=== PATIENT | female | born 1990 | race Caucasian/White ===

== ENCOUNTER 2019-02-14 10:41 | Inpatient (IN) | payer MEDICAID ==
[2019-02-14 12:26] LABS: CHLORIDE,CL 102 mmol/L (98-107); SODIUM,NA 140 mmol/L (136-145)
--- NOTE | 2019-02-14 12:39 | PCM.HP.2 ---
H&P History of Present Illness - General Date of Service: 02/14/19 Admit Problem/Dx: Admission Diagnosis/Problem Admission Diagnosis/Problem Jaundice Source of Information: Patient, Family, Old Records History Limitations: Reports: No Limitations - History of Present Illness Initial Comments - Free Text/Narative: Initially evaluated at [facility] 02-10-19 after her mother saw her for the first time in a few weeks and realized how yellow her eyes and skin had become, the mother convinced patient to come in for evaluation for acute jaundice. Patient was still actively drinking at that time. Workup initiated found acutely elevated liver function tests and mild hypokalemia, and positive urobilinogen. Urine drug of abuse screen was completely negative. BAL was 0.052. Onset of Symptoms: Reports: Unknown/Unsure Duration of Symptoms: Reports: Week(s): Location: Reports: Generalized Severity: Severe Improves with: Reports: None Worsens with: Reports: None Context: Reports: Other (Alcohol abuse, chronic) Associated Symptoms: Reports: Loss of Appetite, Malaise, Weakness, Other ( weight loss, diarrhea) - Related Data Allergies/Adverse Reactions: Allergies Allergy/AdvReac Type Severity Reaction Status Date / Time No Known Allergies Allergy Verified 07/06/13 15:28 Home Medications: Home Meds FLUoxetine HCl [Fluoxetine HCl] 1 tab PO DAILY 07/06/13 [History] Past Medical History - Past Health History Medical/Surgical History: Denies Medical/Surgical History Gastrointestinal History: Reports: Celiac Disease, Chronic Diarrhea, Hepatitis ( recent diagnosis of alcoholic hepatitis, currently hospitalized for), Jaundice ( recent diagnosis, currently being hospitalized for), Other (See Below) (hepatic steatosis) Psychiatric History: Reports: Anxiety Social & Family History - Family History Family Medical History: Unobtainable (Patient is adopted, was born to an alcoholic mother who also used drugs) - Tobacco Use Tobacco Use Within Last Twelve Months: No - Alcohol Use Alcohol Use History: Yes Alcohol Use Frequency: Binges, Daily Alcohol Use Comment: Is interested in long-term residential treatment program. - Recreational Drug Use Recreational Drug Use: No H&P Review of Systems - Review of Systems: Review Of Systems: ROS reveals no pertinent complaints other than HPI. Exam - Exam Exam: See Below - Exam General: Alert, Oriented, 4 HEENT: EOMI, Hearing Intact, Mucosa Moist & Shell, Scleral Icterus Neck: Supple, Trachea Midline Lungs: Clear to Auscultation, Normal Respiratory Effort Cardiovascular: Regular Rate, Regular Rhythm GI/Abdominal Exam: Normal Bowel Sounds, Soft, No Organomegaly, Tender (mild epigastric tenderness to palpation) (Female) Exam: Deferred Rectal (Female) Exam: Deferred Back Exam: Normal Inspection, Full Range of Motion Extremities: No Pedal Edema Skin: Warm, Dry, Intact, Other (skin markedly yellowed secondary to jaundice) Neurological: Cranial Nerves Intact Neuro Extensive - Mental Status: Alert, Oriented x3 Neuro Extensive - Motor, Sensory, Reflexes: CN II-XII Intact, Normal Gait Psychiatric: Alert, Normal Affect, Normal Mood - Patient Data Lab Results Last 24 hrs: Laboratory Results - last 24 hr 02/14/19 Range/Units 11:55 WBC 3.8 L (4.0-10.2) K/uL RBC 3.06 L (3.77-5.09) M/uL Hgb 10.4 L (11.7-15.5) g/dL Hct 30.8 L (34.0-46.0) % MCV 100.7 H (84.0-98.0) fL MCH 34.0 H (28.2-33.3) pg MCHC 33.8 (31.7-36.0) g/dL RDW 18.6 H (11.2-14.1) % Plt Count 241 (150-350) K/uL Neut % (Auto) 59.3 (45.0-80.0) % Lymph % (Auto) 24.4 (10.0-50.0) % [place] % (Auto) 14.2 H (2.0-14.0) % Eos % (Auto) 1.3 (0.0-5.0) % Baso % (Auto) 0.8 (0.0-2.0) % Neut # (Auto) 2.26 (1.40-7.00) K/uL Lymph # (Auto) 0.93 (0.50-3.50) K/uL [place] # (Auto) 0.54 (0.00-1.00) K/uL Eos # (Auto) 0.05 (0.00-0.50) K/uL Baso # (Auto) 0.03 (0.00-0.20) K/uL Result Diagrams: 02/14/19 11:55 02/14/19 11:55 - Problem List (1) Alcohol abuse SNOMED Code(s): 03259217 ICD Code: F10.10 - ALCOHOL ABUSE, UNCOMPLICATED Status: Acute Current Visit: Yes (2) Dehydration SNOMED Code(s): 75921448 ICD Code: E86.0 - DEHYDRATION Status: Acute Priority: Medium Current Visit: Yes (3) Malnutrition SNOMED Code(s): 61878773 ICD Code: E46 - UNSPECIFIED PROTEIN-CALORIE MALNUTRITION Status: Acute Priority: Medium Current Visit: Yes Qualifiers: Malnutrition type: protein-calorie malnutrition Protein-calorie malnutrition severity: mild Problem List Initiated/Reviewed/Updated: Yes Orders Last 24hrs: Active Orders 24 hr Category Date Time Status Patient Status [ADT] Routine ADT 02/14/19 11:40 Ordered Ambulate [RC] PER UNIT ROUTINE Care 02/14/19 11:41 Ordered Cardiac Monitoring [RC] CONTINUOUS Care 02/14/19 11:41 Ordered Height and Weight [RC] DAILY Care 02/14/19 11:39 Ordered Intake and Output [RC] QSHIFT Care 02/14/19 11:41 Ordered May Shower [RC] ASDIRECTED Care 02/14/19 11:39 Ordered Oxygen Therapy [RC] PRN Care 02/14/19 11:40 Ordered Peripheral IV Care [RC] . DIRECTED Care 02/14/19 11:44 Ordered Up ad Darshana [RC] ASDIRECTED Care 02/14/19 11:39 Ordered VTE/DVT Education [RC] PER UNIT ROUTINE Care 02/14/19 11:40 Ordered Vital Signs [RC] Q4H Care 02/14/19 11:40 Ordered Regular Diet [DIET] Diet 02/14/19 Lunch Ordered CBC WITH AUTO DIFF [HEME] AM Lab 02/15/19 05:11 Ordered CBC WITH AUTO DIFF [HEME] AM Lab 02/16/19 05:11 Ordered CBC WITH AUTO DIFF [HEME] AM Lab 02/17/19 05:11 Ordered CBC WITH AUTO DIFF [HEME] AM Lab 02/18/19 05:11 Ordered COMPREHENSIVE METABOLIC PN,CMP [CHEM] AM Lab 02/15/19 05:11 Ordered COMPREHENSIVE METABOLIC PN,CMP [CHEM] AM Lab 02/16/19 05:11 Ordered COMPREHENSIVE METABOLIC PN,CMP [CHEM] AM Lab 02/17/19 05:11 Ordered COMPREHENSIVE METABOLIC PN,CMP [CHEM] AM Lab 02/18/19 05:11 Ordered COMPREHENSIVE METABOLIC PN,CMP [CHEM] Timed Lab 02/14/19 11:39 Ordered DRUG SCREEN, URINE [URCHEM] Stat Lab 02/14/19 11:48 Ordered ETOH [ETHANOL BLOOD MEDICAL] [CHEM] Stat Lab 02/14/19 11:49 Ordered MAGNESIUM [CHEM] Timed Lab 02/14/19 11:39 Ordered URINALYSIS W/MICROSCOPIC [UA W/MICROSCOPIC] [URIN] Lab 02/14/19 11:49 Ordered Routine Sodium Chloride 0.9% [Saline Flush] Med 02/14/19 11:39 Ordered 10 ml FLUSH ASDIRECTED PRN Sodium Chloride 0.9% with KCl 20 mEq @ 150 mL/Hr (1000 Med 02/14/19 11:45 Ordered mL) NS + KCl 20mEq/L [Normal Saline with 20 mEq KCl] 1,000 ml IV ASDIRECTED Peripheral IV Insertion Adult [OM.PC] Routine Oth 02/14/19 11:39 Ordered Resuscitation Status Routine Resus Stat 02/14/19 11:39 Ordered Medication Orders Potassium Chloride/Sodium Chloride (Normal Saline With 20 Meq Kcl) 1,000 mls @ 150 mls/hr IV ASDIRECTED ANGI Sodium Chloride (Saline Flush) 10 ml FLUSH ASDIRECTED PRN PRN Reason: Keep Vein Open Assessment/Plan Comment:: 02-14-19 Remy Burgos PA-C 28 yr-old female with a long history of daily alcohol consumption had presented for evaluation initially at [facility] due to concern for acute jaundice. Her eyes and skin have a significant yellow cast. She was weak and had no appetite, and had lost 26# by our clinic scale unintentionally over the past couple months. She did admit to lack of appetite. She did have some epigastic pain on palpation but no acute generalized tenderness and no organomegaly to palpation. Liver function test were all acutely elevated and she was spilling urobilinogen. K+ mildly elevated. Ultrasound found no cirrhosis but steatosis. She was dehydrated and considered to have at least mild malnutrition status. An IV of NS with KCl is started and telemetry placed. Regular diet ordered, and I will order a dietary consult. Labs sent over from initial visit at [facility] and will be repeated today. Long discussion was held in the clinic of the very acute nature of her liver disease and the extreme risk she is placing herself at if she continues drinking alcohol. I have been in contact with Alta Lee of [facility], and she is hoping she will be able to confirm a bed availability for residential treatment for alcohol abuse. Her 16 month-old daughter has been living with her parents and will continue to do so. Dr. Cedeno was consulted at the time the decision was made to admit.
[2019-02-14 13:13] LABS: BARBITURATE SCREEN,URINE NEGATIVE (NEGATIVE); BENZODIAZEPINES SCREEN,URINE NEGATIVE (NEGATIVE)
[2019-02-14 13:14] LABS: TCA SCREEN,URINE NEGATIVE (NEGATIVE); THC SCREEN,URINE 50 NG/ML NEGATIVE (NEGATIVE)
[2019-02-14] MEDS: LORazepam 1 MG Tab PO PRN ×2 (14:42→20:02)
[2019-02-14] MEDS: NS + KCl 20mEq/L 1,000 ML IV SCH ×2 (14:52→21:32)
--- NOTE | 2019-02-14 15:56 | PCM.SN ---
- Free Text/Narrative Note: 02-14-19 Remy Burgos PA-C This patient was seen in [facility] and admitted to IP status by this provider as her prior primary care provider QASIM Pena is no longer practicing at [facility] and is not currently seeing patients in her new place of employment.
[2019-02-14] MEDS: Potassium Chloride 20 MEQ Tab.ER PO SCH (18:36)
[2019-02-14] MEDS: Nicotine 21 MG/24 Hr Patch TRDERM SCH (19:23)
[2019-02-15] MEDS ORDERED: Acetaminophen 325 MG Tab PO PRN (00:19)
[2019-02-15] MEDS: LORazepam 1 MG Tab PO PRN ×4 (00:37→19:22)
[2019-02-15] MEDS ORDERED: Mineral Oil/Petrolatum/Phenylephrine/Shark Liver Oil Oint 57 GM Tube RECTAL PRN (00:46)
[2019-02-15] MEDS: NS + KCl 20mEq/L 1,000 ML IV SCH ×3 (04:21→19:30)
[2019-02-15] MEDS: Sodium Chloride 0.9% 10 ML Syringe FLUSH PRN ×3 (07:20→17:17)
[2019-02-15] MEDS: LORazepam 2 MG/ML SDV IVPUSH PRN ×2 (07:20→11:03)
[2019-02-15] MEDS: Potassium Chloride 20 MEQ Tab.ER PO SCH ×2 (07:20→17:17)
[2019-02-15] MEDS: Nicotine 21 MG/24 Hr Patch TRDERM SCH (07:20)
[2019-02-15 07:51] LABS: CHLORIDE,CL 104 mmol/L (98-107); SODIUM,NA 139 mmol/L (136-145)
--- NOTE | 2019-02-15 12:37 | PCM.PN ---
- General Info Date of Service: 02/15/19 Admission Dx/Problem (Free Text): Admission Diagnosis/Problem Admission Diagnosis/Problem Jaundice Functional Status: Reports: Tolerating Diet (says trying to eat more), Ambulating, Urinating - Review of Systems General: Reports: Fatigue HEENT: Reports: No Symptoms Pulmonary: Reports: No Symptoms Cardiovascular: Reports: No Symptoms Gastrointestinal: Reports: Other (some bloating, better now) Genitourinary: Reports: No Symptoms Musculoskeletal: Reports: No Symptoms Skin: Reports: Jaundice Neurological: Reports: No Symptoms Psychiatric: Reports: No Symptoms - Patient Data Vitals - Most Recent: Last Vital Signs Temp 98.1 F 02/15/19 12:00 Pulse 100 02/15/19 12:00 Resp 17 02/15/19 12:00 BP 132/80 02/15/19 12:00 Pulse Ox 98 02/15/19 12:00 Weight - Most Recent: 140 lb 6.4 oz I&O - Last 24 Hours: Intake & Output 02/14/19 02/15/19 02/15/19 22:59 06:59 14:59 Intake Total 1618 3254 Output Total 1900 950 Balance 1618 1354 -950 Lab Results Last 24 Hours: Laboratory Results - last 24 hr 02/14/19 02/14/19 02/14/19 Range/Units 11:48 11:48 11:55 WBC (4.0-10.2) K/uL RBC (3.77-5.09) M/uL Hgb (11.7-15.5) g/dL Hct (34.0-46.0) % MCV (84.0-98.0) fL MCH (28.2-33.3) pg MCHC (31.7-36.0) g/dL RDW (11.2-14.1) % Plt Count (150-350) K/uL Neut % (Auto) (45.0-80.0) % Lymph % (Auto) (10.0-50.0) % [place] % (Auto) (2.0-14.0) % Eos % (Auto) (0.0-5.0) % Baso % (Auto) (0.0-2.0) % Neut # (Auto) (1.40-7.00) K/uL Lymph # (Auto) (0.50-3.50) K/uL [place] # (Auto) (0.00-1.00) K/uL Eos # (Auto) (0.00-0.50) K/uL Baso # (Auto) (0.00-0.20) K/uL Sodium 140 (136-145) mmol/L Potassium 3.0 L (3.5-5.1) mmol/L Chloride 102 (98-107) mmol/L Carbon Dioxide 27.9 (21.0-32.0) mmol/L BUN 7 (7-18) mg/dL Creatinine 0.52 (0.51-1.17) mg/dL Est Cr Clr Drug Dosing TNP Estimated GFR (MDRD) > 60 mL/min Glucose 123 H (74-106) mg/dL Calcium 7.7 L (8.5-10.1) mg/dL Magnesium 1.7 L (1.8-2.4) mg/dL Total Bilirubin 5.0 H (0.2-1.0) mg/dL AST 573 H (15-37) U/L ALT 205 H (12-78) U/L Alkaline Phosphatase 673 H (46-116) IU/L Total Protein 5.7 L (6.4-8.2) g/dL Albumin 2.3 L (3.4-5.0) g/dL Specimen Type Urincc Urine Color Yellow Urine Appearance Clear Urine pH 6.5 (5.0-9.0) Ur Specific [place] 1.010 (1.005-1.030) Urine Protein Negative (NEGATIVE) mg/dL Urine Glucose (UA) Negative (NEGATIVE) mg/dL Urine Ketones Negative (NEGATIVE) mg/dL Urine Occult Blood Negative (NEGATIVE) Urine Nitrite Negative (NEGATIVE) Urine Bilirubin Moderate H (NEGATIVE) Urine Urobilinogen 0.2 (0.2-1.0) E.U./dL Ur Leukocyte Esterase Negative (NEGATIVE) Urine RBC Not seen /HPF Urine WBC Not seen /HPF Ur Epithelial Cells Moderate H /LPF Urine Bacteria Rare (NONE TO FEW) /HPF Urine Opiates Screen Negative (NEGATIVE) Urine Methadone Screen Negative (NEGATIVE) U Acetaminophen Screen Negative (NEGATIVE) Ur Barbiturates Screen Negative (NEGATIVE) Ur Tricyclics Screen Negative (NEGATIVE) Ur Phencyclidine Scrn Negative (NEGATIVE) Ur Amphetamine Screen Negative (NEGATIVE) U Methamphetamines Scrn Negative (NEGATIVE) U Benzodiazepines Scrn Negative (NEGATIVE) U Cocaine Metab Screen Negative (NEGATIVE) U Marijuana (THC) Screen Negative (NEGATIVE) Ethyl Alcohol (0.000-0.080) g/dL 02/14/19 02/15/19 02/15/19 Range/Units 11:55 07:20 07:20 WBC 3.7 L (4.0-10.2) K/uL RBC 3.03 L (3.77-5.09) M/uL Hgb 10.3 L (11.7-15.5) g/dL Hct 30.8 L (34.0-46.0) % MCV 101.7 H (84.0-98.0) fL MCH 34.0 H (28.2-33.3) pg MCHC 33.4 (31.7-36.0) g/dL RDW 18.6 H (11.2-14.1) % Plt Count 259 (150-350) K/uL Neut % (Auto) 63.3 (45.0-80.0) % Lymph % (Auto) 25.3 (10.0-50.0) % [place] % (Auto) 10.1 (2.0-14.0) % Eos % (Auto) 0.8 (0.0-5.0) % Baso % (Auto) 0.5 (0.0-2.0) % Neut # (Auto) 2.33 (1.40-7.00) K/uL Lymph # (Auto) 0.93 (0.50-3.50) K/uL [place] # (Auto) 0.37 (0.00-1.00) K/uL Eos # (Auto) 0.03 (0.00-0.50) K/uL Baso # (Auto) 0.02 (0.00-0.20) K/uL Sodium 139 (136-145) mmol/L Potassium 3.6 (3.5-5.1) mmol/L Chloride 104 (98-107) mmol/L Carbon Dioxide 24.4 (21.0-32.0) mmol/L BUN 3 L (7-18) mg/dL Creatinine 0.50 L (0.51-1.17) mg/dL Est Cr Clr Drug Dosing 164.35 Estimated GFR (MDRD) > 60 mL/min Glucose 104 (74-106) mg/dL Calcium 8.1 L (8.5-10.1) mg/dL Magnesium (1.8-2.4) mg/dL Total Bilirubin 5.8 H (0.2-1.0) mg/dL AST 711 H (15-37) U/L ALT 210 H (12-78) U/L Alkaline Phosphatase 663 H (46-116) IU/L Total Protein 5.4 L (6.4-8.2) g/dL Albumin 2.1 L (3.4-5.0) g/dL Specimen Type Urine Color Urine Appearance Urine pH (5.0-9.0) Ur Specific [place] (1.005-1.030) Urine Protein (NEGATIVE) mg/dL Urine Glucose (UA) (NEGATIVE) mg/dL Urine Ketones (NEGATIVE) mg/dL Urine Occult Blood (NEGATIVE) Urine Nitrite (NEGATIVE) Urine Bilirubin (NEGATIVE) Urine Urobilinogen (0.2-1.0) E.U./dL Ur Leukocyte Esterase (NEGATIVE) Urine RBC /HPF Urine WBC /HPF Ur Epithelial Cells /LPF Urine Bacteria (NONE TO FEW) /HPF Urine Opiates Screen (NEGATIVE) Urine Methadone Screen (NEGATIVE) U Acetaminophen Screen (NEGATIVE) Ur Barbiturates Screen (NEGATIVE) Ur Tricyclics Screen (NEGATIVE) Ur Phencyclidine Scrn (NEGATIVE) Ur Amphetamine Screen (NEGATIVE) U Methamphetamines Scrn (NEGATIVE) U Benzodiazepines Scrn (NEGATIVE) U Cocaine Metab Screen (NEGATIVE) U Marijuana (THC) Screen (NEGATIVE) Ethyl Alcohol 0.166 H (0.000-0.080) g/dL 02/15/19 Range/Units 07:20 WBC (4.0-10.2) K/uL RBC (3.77-5.09) M/uL Hgb (11.7-15.5) g/dL Hct (34.0-46.0) % MCV (84.0-98.0) fL MCH (28.2-33.3) pg MCHC (31.7-36.0) g/dL RDW (11.2-14.1) % Plt Count (150-350) K/uL Neut % (Auto) (45.0-80.0) % Lymph % (Auto) (10.0-50.0) % [place] % (Auto) (2.0-14.0) % Eos % (Auto) (0.0-5.0) % Baso % (Auto) (0.0-2.0) % Neut # (Auto) (1.40-7.00) K/uL Lymph # (Auto) (0.50-3.50) K/uL [place] # (Auto) (0.00-1.00) K/uL Eos # (Auto) (0.00-0.50) K/uL Baso # (Auto) (0.00-0.20) K/uL Sodium (136-145) mmol/L Potassium (3.5-5.1) mmol/L Chloride (98-107) mmol/L Carbon Dioxide (21.0-32.0) mmol/L BUN (7-18) mg/dL Creatinine (0.51-1.17) mg/dL Est Cr Clr Drug Dosing Estimated GFR (MDRD) mL/min Glucose (74-106) mg/dL Calcium (8.5-10.1) mg/dL Magnesium (1.8-2.4) mg/dL Total Bilirubin (0.2-1.0) mg/dL AST (15-37) U/L ALT (12-78) U/L Alkaline Phosphatase (46-116) IU/L Total Protein (6.4-8.2) g/dL Albumin (3.4-5.0) g/dL Specimen Type Urine Color Urine Appearance Urine pH (5.0-9.0) Ur Specific [place] (1.005-1.030) Urine Protein (NEGATIVE) mg/dL Urine Glucose (UA) (NEGATIVE) mg/dL Urine Ketones (NEGATIVE) mg/dL Urine Occult Blood (NEGATIVE) Urine Nitrite (NEGATIVE) Urine Bilirubin (NEGATIVE) Urine Urobilinogen (0.2-1.0) E.U./dL Ur Leukocyte Esterase (NEGATIVE) Urine RBC /HPF Urine WBC /HPF Ur Epithelial Cells /LPF Urine Bacteria (NONE TO FEW) /HPF Urine Opiates Screen (NEGATIVE) Urine Methadone Screen (NEGATIVE) U Acetaminophen Screen (NEGATIVE) Ur Barbiturates Screen (NEGATIVE) Ur Tricyclics Screen (NEGATIVE) Ur Phencyclidine Scrn (NEGATIVE) Ur Amphetamine Screen (NEGATIVE) U Methamphetamines Scrn (NEGATIVE) U Benzodiazepines Scrn (NEGATIVE) U Cocaine Metab Screen (NEGATIVE) U Marijuana (THC) Screen (NEGATIVE) Ethyl Alcohol 0.001 (0.000-0.080) g/dL Med Orders - Current: Current Medications Acetaminophen (Tylenol) 650 mg PO Q3H PRN PRN Reason: Pain Last Admin: 02/15/19 00:38 Dose: 650 mg Potassium Chloride/Sodium Chloride (Normal Saline With 20 Meq Kcl) 1,000 mls @ 150 mls/hr IV ASDIRECTED ANGI Last Admin: 02/15/19 11:03 Dose: 150 mls/hr Lorazepam (Ativan) 1 mg PO Q4H PRN PRN Reason: Withdrawal Symptoms Last Admin: 02/15/19 04:26 Dose: 1 mg Lorazepam (Ativan) 2 mg IVPUSH Q1H PRN PRN Reason: Withdrawal Symptoms Last Admin: 02/15/19 11:03 Dose: 2 mg Miscellaneous Information (Remove Patch) 1 ea TRDERM DAILY [facility] Nicotine (Habitrol) 21 mg TRDERM DAILY [facility] Last Admin: 02/15/19 07:20 Dose: 21 mg Phenyleph/Shark Oil/Min Oil/Petrol (Preparation H Oint) 1 gm RECTAL ASDIRECTED PRN PRN Reason: Hemorrhoids Last Admin: 02/15/19 01:03 Dose: 1 gm Potassium Chloride (Klor-Con M20) 20 meq PO BID ANGI Last Admin: 02/15/19 07:20 Dose: 20 meq Sodium Chloride (Saline Flush) 10 ml FLUSH ASDIRECTED PRN PRN Reason: Keep Vein Open Last Admin: 02/15/19 11:03 Dose: 10 ml - Exam General: Alert, Oriented HEENT: Pupils Equal, Pupils Reactive, EOMI, Mucous Membr. Moist/[place], Scleral Icterus Neck: Supple, Trachea Midline, No JVD Lungs: Clear to Auscultation, Normal Respiratory Effort Cardiovascular: Regular Rate, Regular Rhythm GI/Abdominal Exam: Normal Bowel Sounds, Soft, Non-Tender, No Organomegaly, Distended (softly) (Female) Exam: Deferred Back Exam: Normal Inspection Extremities: Normal Inspection, No Pedal Edema Skin: Warm, Dry, Intact Neurological: No New Focal Deficit Psy/Mental Status: Alert, Normal Affect, Normal Mood - Problem List & Annotations (1) Alcohol abuse SNOMED Code(s): 34671864 Code(s): F10.10 - ALCOHOL ABUSE, UNCOMPLICATED Status: Acute Current Visit: Yes (2) Dehydration SNOMED Code(s): 22318627 Code(s): E86.0 - DEHYDRATION Status: Acute Priority: Medium Current Visit: Yes (3) Malnutrition SNOMED Code(s): 62345784 Code(s): E46 - UNSPECIFIED PROTEIN-CALORIE MALNUTRITION Status: Acute Priority: Medium Current Visit: Yes Qualifiers: Malnutrition type: protein-calorie malnutrition Protein-calorie malnutrition severity: mild Qualified Code(s): E44.1 - Mild protein-calorie malnutrition - Problem List Review Problem List Initiated/Reviewed/Updated: Yes - My Orders Last 24 Hours: My Active Orders 02/14/19 11:39 Height and Weight [RC] 16 September Shower [RC] ASDIRECTED Up ad Darshana [RC] ASDIRECTED Sodium Chloride 0.9% [Saline Flush] 10 ml FLUSH ASDIRECTED PRN Peripheral IV Insertion Adult [OM.PC] Routine Resuscitation Status Routine 02/14/19 11:40 Patient Status [ADT] Routine Oxygen Therapy [RC] .PRN VTE/DVT Education [RC] .PRN Vital Signs [RC] Q4HR 02/14/19 11:41 Ambulate [RC] PER UNIT ROUTINE Cardiac Monitoring [RC] Q2HR Intake and Output [RC] ,18 02/14/19 11:44 Peripheral IV Care [RC] . DIRECTED 02/14/19 11:45 NS + KCl 20mEq/L [Normal Saline with 20 mEq KCl] 1,000 ml IV ASDIRECTED 02/14/19 13:23 Consult to Dietary [Consult to Rn Lab] [CONS] Routine 02/14/19 13:45 medroxyPROGESTERone Acetate [Depo-Subq Provera 104] DOSE UNIT RTE FREQ 02/14/19 14:00 LORazepam [Ativan] 1 mg PO Q4H PRN LORazepam [Ativan] 2 mg IVPUSH Q1H PRN 02/14/19 18:00 Potassium Chloride [Klor-Con M20] 20 meq PO BID 02/16/19 05:11 CBC WITH AUTO DIFF [HEME] AM COMPREHENSIVE METABOLIC PN,CMP [CHEM] AM 02/17/19 05:11 CBC WITH AUTO DIFF [HEME] AM COMPREHENSIVE METABOLIC PN,CMP [CHEM] AM 02/18/19 05:11 CBC WITH AUTO DIFF [HEME] AM COMPREHENSIVE METABOLIC PN,CMP [CHEM] AM - Plan Plan:: 02-14-19 Remy Burgos PA-C 28 yr-old female with a long history of daily alcohol consumption had presented for evaluation initially at [facility] due to concern for acute jaundice. Her eyes and skin have a significant yellow cast. She was weak and had no appetite, and had lost 26# by our clinic scale unintentionally over the past couple months. She did admit to lack of appetite. She did have some epigastic pain on palpation but no acute generalized tenderness and no organomegaly to palpation. Liver function test were all acutely elevated and she was spilling urobilinogen. K+ mildly elevated. Ultrasound found no cirrhosis but steatosis. She was dehydrated and considered to have at least mild malnutrition status. An IV of NS with KCl is started and telemetry placed. Regular diet ordered, and I will order a dietary consult. Labs sent over from initial visit at [facility] and will be repeated today. Long discussion was held in the clinic of the very acute nature of her liver disease and the extreme risk she is placing herself at if she continues drinking alcohol. I have been in contact with Alta Lee of [facility] [place], and she is hoping she will be able to confirm a bed availability for residential treatment for alcohol abuse. Her 16 month-old daughter has been living with her parents and will continue to do so. Dr. Cedeno was consulted at the time the decision was made to admit. 02-15-19 Remy Burgos PA-C Patient is sitting up in the bed today, she has not eaten any of her lunch but says she will. Says she is trying to increase fluid and nutritional intake. Denies chest or abdominal pain. Denies SOB. Is using the prn Lorazepam. Tells me today that she has now chosen [facility] in [place], [place] as the facility she wants to be admitted to for alcohol treatment. She has made contact herself with this facility per telephone and does have a fax number that we can use to send information to. I reviewed today's labs with patient, and told her I believe that I do not feel she will be discharged to home tomorrow but probably Sunday.
[2019-02-15] MEDS: Thiamine 200 MG/2 ML MDV IV SCH (17:17)
[2019-02-15] MEDS ORDERED: Temazepam 15 MG Cap PO PRN (21:16)
[2019-02-16] MEDS ORDERED: diphenhydrAMINE 25 MG Cap PO ONE (02:17)
[2019-02-16] MEDS: LORazepam 1 MG Tab PO PRN ×3 (02:32→22:49)
[2019-02-16] MEDS: Sodium Chloride 0.9% 10 ML Syringe FLUSH PRN ×2 (04:09→08:11)
[2019-02-16] MEDS: LORazepam 2 MG/ML SDV IVPUSH PRN (04:09)
[2019-02-16] MEDS: Nicotine 21 MG/24 Hr Patch TRDERM SCH (08:04)
[2019-02-16] MEDS: Potassium Chloride 20 MEQ Tab.ER PO SCH (08:08)
[2019-02-16] MEDS: Thiamine 200 MG/2 ML MDV IV SCH (08:09)
[2019-02-16 08:11] LABS: CHLORIDE,CL 106 mmol/L (98-107); SODIUM,NA 140 mmol/L (136-145)
[2019-02-16] MEDS: NS + KCl 20mEq/L 1,000 ML IV SCH (09:06)
[2019-02-16] MEDS: Sodium Chloride 0.9% 1,000 ML IV SCH ×2 (14:52→22:55)
--- NOTE | 2019-02-16 15:04 | PCM.PN ---
- General Info Date of Service: 02/16/19 Admission Dx/Problem (Free Text): Admission Diagnosis/Problem Admission Diagnosis/Problem Jaundice Functional Status: Reports: Tolerating Diet, Ambulating, Urinating - Review of Systems General: Reports: Fatigue HEENT: Reports: No Symptoms Pulmonary: Reports: No Symptoms Cardiovascular: Reports: No Symptoms Gastrointestinal: Reports: Decreased Appetite Genitourinary: Reports: No Symptoms Musculoskeletal: Reports: No Symptoms Skin: Reports: Other (says skin and eyes less yellow) Neurological: Reports: No Symptoms Psychiatric: Reports: No Symptoms - Patient Data Vitals - Most Recent: Last Vital Signs Temp 99.2 F 02/16/19 12:00 Pulse 89 02/16/19 12:00 Resp 20 02/16/19 12:00 BP 132/90 02/16/19 12:00 Pulse Ox 98 02/16/19 12:00 Weight - Most Recent: 138 lb 4.8 oz I&O - Last 24 Hours: Intake & Output 02/15/19 02/16/19 02/16/19 22:59 06:59 14:59 Intake Total 3272 1238 1050 Output Total 1600 600 Balance 6447 206 0076 Lab Results Last 24 Hours: Laboratory Results - last 24 hr 02/15/19 02/16/19 02/16/19 Range/Units 17:09 07:11 07:11 WBC 4.0 (4.0-10.2) K/uL RBC 3.25 L (3.77-5.09) M/uL Hgb 11.0 L (11.7-15.5) g/dL Hct 34.0 (34.0-46.0) % MCV 104.6 H (84.0-98.0) fL MCH 33.8 H (28.2-33.3) pg MCHC 32.4 (31.7-36.0) g/dL RDW 18.7 H (11.2-14.1) % Plt Count 294 (150-350) K/uL Neut % (Auto) 57.1 (45.0-80.0) % Lymph % (Auto) 31.3 (10.0-50.0) % [place] % (Auto) 8.6 (2.0-14.0) % Eos % (Auto) 2.5 (0.0-5.0) % Baso % (Auto) 0.5 (0.0-2.0) % Neut # (Auto) 2.26 (1.40-7.00) K/uL Lymph # (Auto) 1.24 (0.50-3.50) K/uL [place] # (Auto) 0.34 (0.00-1.00) K/uL Eos # (Auto) 0.10 (0.00-0.50) K/uL Baso # (Auto) 0.02 (0.00-0.20) K/uL PT 11.5 (9.5-12.0) SEC INR 1.1 APTT 28.2 (21.0-31.3) SEC Sodium (136-145) mmol/L Potassium (3.5-5.1) mmol/L Chloride (98-107) mmol/L Carbon Dioxide (21.0-32.0) mmol/L BUN (7-18) mg/dL Creatinine (0.51-1.17) mg/dL Est Cr Clr Drug Dosing mL/min Estimated GFR (MDRD) mL/min Glucose (74-106) mg/dL Calcium (8.5-10.1) mg/dL Magnesium (1.8-2.4) mg/dL Iron (50-175) ug/dL TIBC (250-450) ug/dL % Saturation Ferritin (8-388) ng/mL Total Bilirubin (0.2-1.0) mg/dL AST (15-37) U/L ALT (12-78) U/L Alkaline Phosphatase (46-116) IU/L Total Protein (6.4-8.2) g/dL Albumin (3.4-5.0) g/dL Vitamin B12 (193-986) pg/mL Folate (8.6-58.9) ng/mL Specimen Type Urincc Urine Color [place] Urine Appearance Clear Urine pH 7.5 (5.0-9.0) Ur Specific [place] 1.015 (1.005-1.030) Urine Protein Negative (NEGATIVE) mg/dL Urine Glucose (UA) Negative (NEGATIVE) mg/dL Urine Ketones Negative (NEGATIVE) mg/dL Urine Occult Blood Negative (NEGATIVE) Urine Nitrite Negative (NEGATIVE) Urine Bilirubin Small H (NEGATIVE) Urine Urobilinogen 0.2 (0.2-1.0) E.U./dL Ur Leukocyte Esterase Negative (NEGATIVE) Urine RBC 0-5 /HPF Urine WBC 0-5 /HPF Ur Epithelial Cells Occasional /LPF Urine Bacteria Occasional (NONE TO FEW) /HPF 02/16/19 02/16/19 02/16/19 Range/Units 07:22 07:22 07:22 WBC (4.0-10.2) K/uL RBC (3.77-5.09) M/uL Hgb (11.7-15.5) g/dL Hct (34.0-46.0) % MCV (84.0-98.0) fL MCH (28.2-33.3) pg MCHC (31.7-36.0) g/dL RDW (11.2-14.1) % Plt Count (150-350) K/uL Neut % (Auto) (45.0-80.0) % Lymph % (Auto) (10.0-50.0) % [place] % (Auto) (2.0-14.0) % Eos % (Auto) (0.0-5.0) % Baso % (Auto) (0.0-2.0) % Neut # (Auto) (1.40-7.00) K/uL Lymph # (Auto) (0.50-3.50) K/uL [place] # (Auto) (0.00-1.00) K/uL Eos # (Auto) (0.00-0.50) K/uL Baso # (Auto) (0.00-0.20) K/uL PT (9.5-12.0) SEC INR APTT (21.0-31.3) SEC Sodium 140 (136-145) mmol/L Potassium 4.6 (3.5-5.1) mmol/L Chloride 106 (98-107) mmol/L Carbon Dioxide 24.6 (21.0-32.0) mmol/L BUN 3 L (7-18) mg/dL Creatinine 0.51 (0.51-1.17) mg/dL Est Cr Clr Drug Dosing 161.13 mL/min Estimated GFR (MDRD) > 60 mL/min Glucose 88 (74-106) mg/dL Calcium 8.9 (8.5-10.1) mg/dL Magnesium 1.8 (1.8-2.4) mg/dL Iron 137 (50-175) ug/dL TIBC 121 L (250-450) ug/dL % Saturation 113.30443 Ferritin 2489 H (8-388) ng/mL Total Bilirubin 8.9 H (0.2-1.0) mg/dL AST 566 H (15-37) U/L ALT 206 H (12-78) U/L Alkaline Phosphatase 693 H (46-116) IU/L Total Protein 6.0 L (6.4-8.2) g/dL Albumin 2.3 L (3.4-5.0) g/dL Vitamin B12 1550 H (193-986) pg/mL Folate 10.1 (8.6-58.9) ng/mL Specimen Type Urine Color Urine Appearance Urine pH (5.0-9.0) Ur Specific [place] (1.005-1.030) Urine Protein (NEGATIVE) mg/dL Urine Glucose (UA) (NEGATIVE) mg/dL Urine Ketones (NEGATIVE) mg/dL Urine Occult Blood (NEGATIVE) Urine Nitrite (NEGATIVE) Urine Bilirubin (NEGATIVE) Urine Urobilinogen (0.2-1.0) E.U./dL Ur Leukocyte Esterase (NEGATIVE) Urine RBC /HPF Urine WBC /HPF Ur Epithelial Cells /LPF Urine Bacteria (NONE TO FEW) /HPF Med Orders - Current: Current Medications Acetaminophen (Tylenol) 650 mg PO Q3H PRN PRN Reason: Pain Last Admin: 02/15/19 00:38 Dose: 650 mg Sodium Chloride (Normal Saline) 1,000 mls @ 125 mls/hr IV ASDIRECTED [facility] Last Admin: 02/16/19 14:52 Dose: 125 mls/hr Lorazepam (Ativan) 1 mg PO Q4H PRN PRN Reason: Withdrawal Symptoms Last Admin: 02/16/19 02:32 Dose: 1 mg Lorazepam (Ativan) 2 mg IVPUSH Q1H PRN PRN Reason: Withdrawal Symptoms Last Admin: 02/16/19 04:09 Dose: 2 mg Miscellaneous Information (Remove Patch) 1 ea TRDERM DAILY [facility] Last Admin: 02/16/19 08:08 Dose: 1 ea Nicotine (Habitrol) 21 mg TRDERM DAILY [facility] Last Admin: 02/16/19 08:04 Dose: 21 mg Phenyleph/Shark Oil/Min Oil/Petrol (Preparation H Oint) 1 gm RECTAL ASDIRECTED PRN PRN Reason: Hemorrhoids Last Admin: 02/15/19 01:03 Dose: 1 gm Potassium Chloride (Klor-Con M20) 20 meq PO DAILY [facility] Sodium Chloride (Saline Flush) 10 ml FLUSH ASDIRECTED PRN PRN Reason: Keep Vein Open Last Admin: 02/16/19 08:11 Dose: 10 ml Temazepam (Restoril) 15 mg PO BEDTIME PRN PRN Reason: Insomnia Thiamine HCl (Vitamin B-1) 100 mg IV DAILY [facility] Last Admin: 02/16/19 08:09 Dose: 100 mg Discontinued Medications Diphenhydramine HCl (Benadryl) 50 mg PO ONETIME ONE Stop: 02/16/19 02:18 Last Admin: 02/16/19 02:32 Dose: 50 mg Potassium Chloride/Sodium Chloride (Normal Saline With 20 Meq Kcl) 1,000 mls @ 75 mls/hr IV ASDIRECTED [facility] Last Admin: 02/16/19 09:06 Dose: 150 mls/hr Potassium Chloride (Klor-Con M20) 20 meq PO BID [facility] Last Admin: 02/16/19 08:08 Dose: 20 meq - Exam General: Alert, Oriented, Cooperative, No Acute Distress HEENT: Pupils Equal, Pupils Reactive, EOMI, Mucous Membr. Moist/[place], Scleral Icterus (improved from initial exam) Neck: Supple, Trachea Midline Lungs: Clear to Auscultation, Normal Respiratory Effort Cardiovascular: Tachycardia (mildly) GI/Abdominal Exam: Normal Bowel Sounds, Soft, No Organomegaly, Tender (mild RUQ and epigastric tenderness to palpation) (Female) Exam: Deferred Back Exam: Normal Inspection Extremities: Normal Inspection, No Pedal Edema Skin: Warm, Dry, Intact Neurological: No New Focal Deficit Psy/Mental Status: Alert, Normal Affect, Normal Mood - Problem List & Annotations (1) Alcohol abuse SNOMED Code(s): 75249108 Code(s): F10.10 - ALCOHOL ABUSE, UNCOMPLICATED Status: Acute Current Visit: Yes (2) Dehydration SNOMED Code(s): 39073431 Code(s): E86.0 - DEHYDRATION Status: Acute Priority: Medium Current Visit: Yes (3) Malnutrition SNOMED Code(s): 36511813 Code(s): E46 - UNSPECIFIED PROTEIN-CALORIE MALNUTRITION Status: Acute Priority: Medium Current Visit: Yes Qualifiers: Malnutrition type: protein-calorie malnutrition Protein-calorie malnutrition severity: mild Qualified Code(s): E44.1 - Mild protein-calorie malnutrition - Problem List Review Problem List Initiated/Reviewed/Updated: Yes - My Orders Last 24 Hours: My Active Orders 02/15/19 20:00 Vital Signs [RC] QID 02/16/19 14:30 Sodium Chloride 0.9% @ 125 MLS/HR (1000ml) Sodium Chloride 0.9% [Normal Saline] 1,000 ml IV ASDIRECTED 02/16/19 14:58 Cardiac Monitoring [RC] Q4HR 02/17/19 05:11 CBC WITH AUTO DIFF [HEME] AM COMPREHENSIVE METABOLIC PN,CMP [CHEM] AM 02/17/19 08:00 Potassium Chloride [Klor-Con M20] 20 meq PO DAILY 02/18/19 05:11 CBC WITH AUTO DIFF [HEME] AM COMPREHENSIVE METABOLIC PN,CMP [CHEM] AM - Plan Plan:: 02-14-19 Remy Burgos PA-C 28 yr-old female with a long history of daily alcohol consumption had presented for evaluation [place] [facility] [place] to concern for acute jaundice. Her eyes and skin have a significant yellow cast. She was weak and had no appetite, and had lost 26# by our clinic scale unintentionally over the past couple months. She did admit to lack of appetite. She did have some epigastic pain on palpation but no acute generalized tenderness and no organomegaly to palpation. Liver function test were all acutely elevated and she was spilling urobilinogen. K+ mildly elevated. Ultrasound found no cirrhosis but steatosis. She was dehydrated and considered to have at least mild malnutrition status. An IV of NS with KCl is started and telemetry placed. Regular diet ordered, and I will order a dietary consult. Labs sent over from initial visit at [facility] and will be repeated today. Long discussion was held in the clinic of the very acute nature of her liver disease and the extreme risk she is placing herself at if she continues drinking alcohol. I have been in contact with Alta Lee of [facility] [place], and she is hoping she will be able to confirm a bed availability for residential treatment for alcohol abuse. Her 16 month-old daughter has been living with her parents and will continue to do so. Dr. Cedeno was consulted at the time the decision was made to admit. 02-15-19 Remy Burgos PA-C Patient is sitting up in the bed today, she has not eaten any of her lunch but says she will. Says she is trying to increase fluid and nutritional intake. Denies chest or abdominal pain. Denies SOB. Is using the prn Lorazepam. Tells me today that she has now chosen [facility] in [place], [place] as the facility she wants to be admitted to for alcohol treatment. She has made contact herself with this facility per telephone and does have a fax number that we can use to send information to. I reviewed today's labs with patient, and told her I believe that I do not feel she will be discharged to home tomorrow but probably Sunday. 02-16-19 Remy Burgos PA-C Patient's affect is a little brighter today. Less scleral icterus. I am concerned for the increased T. Bill. and elevated Ferritin level. AST has trended back down somewhat, but ALT and Alk. Phos. essentially unchanged. K+ now well WNL so the IV fluid is changed to NS without the KCl and the po KCl is changed to only daily. Pt. tells me she drinks because of her anxiety and asks about an anti-anxiety pill. Says she was previously be on Wellbutrin, however I explained to her to risk for seizures if she should relapse and drink again as the Wellbutrin would lower the seizure threshold so this would not be a good choice for her, and she says it did not help anyway. I explained that any of the medicines that act on the central nervous system can dramatically exacerbate the effect of alcohol and would carry risk. She has used less of the prn Lorazepam today. We discussed the two AA meeting places here in [place] and says she has been to the one at the [facility] and felt that she was gossiped about after attending and wouldn't feel comfortable going again. I did strongly recommend she attend at least one meet at the [facility], the meetings are on Sunday nights at I believe 7pm but I did give her the phone number of the [facility] so she can call and verify that time. She tells me again she wants to go the [facility] in [place], [place] and is working on transferring her Medicaid over to [place]. She will be going home with friends when she is discharged, and reassures me that these friends will help keep her sober. I did let her know that Dr. Cedeno will be seeing her here in the hospital tomorrow. I also wished her success in her sobriety.
[2019-02-17] MEDS: LORazepam 1 MG Tab PO PRN ×2 (04:40→08:14)
[2019-02-17] MEDS: Sodium Chloride 0.9% 1,000 ML IV SCH (07:15)
[2019-02-17 07:39] LABS: CHLORIDE,CL 106 mmol/L (98-107); SODIUM,NA 139 mmol/L (136-145)
[2019-02-17] MEDS ORDERED: Potassium Chloride 20 MEQ Tab.ER PO SCH (08:00)
[2019-02-17] MEDS: Nicotine 21 MG/24 Hr Patch TRDERM SCH (08:13)
[2019-02-17] MEDS: Thiamine 200 MG/2 ML MDV IV SCH (08:13)
[2019-02-17] MEDS: Sodium Chloride 0.9% 10 ML Syringe FLUSH PRN (08:14)
[2019-02-17 14:10] VITALS: BP 118/76; PULSE 85
--- NOTE | 2019-02-18 | PCM.PN ---
- General Info Date of Service: 02/17/19 Admission Dx/Problem (Free Text): Admission Diagnosis/Problem Admission Diagnosis/Problem Jaundice Functional Status: Reports: Pain Controlled, Tolerating Diet, Ambulating, Urinating - Review of Systems General: Reports: No Symptoms HEENT: Reports: No Symptoms Pulmonary: Reports: No Symptoms Cardiovascular: Reports: No Symptoms Gastrointestinal: Reports: No Symptoms Genitourinary: Reports: No Symptoms Musculoskeletal: Reports: No Symptoms Skin: Reports: Jaundice Neurological: Reports: No Symptoms Psychiatric: Reports: Anxiety - Patient Data Vitals - Most Recent: Last Vital Signs Temp 99 F 02/17/19 11:05 Pulse 85 02/17/19 11:05 Resp 20 02/17/19 11:05 BP 118/76 02/17/19 11:05 Pulse Ox 96 02/17/19 11:05 Weight - Most Recent: 135 lb 3.2 oz I&O - Last 24 Hours: Intake & Output 02/17/19 02/17/19 02/18/19 14:59 22:59 06:59 Intake Total 500 Output Total 1200 Balance -700 Lab Results Last 24 Hours: Laboratory Results - last 24 hr 02/17/19 02/17/19 Range/Units 07:05 07:05 WBC 5.2 (4.0-10.2) K/uL RBC 2.93 L (3.77-5.09) M/uL Hgb 9.9 L (11.7-15.5) g/dL Hct 30.8 L (34.0-46.0) % MCV 105.1 H (84.0-98.0) fL MCH 33.8 H (28.2-33.3) pg MCHC 32.1 (31.7-36.0) g/dL RDW 18.7 H (11.2-14.1) % Plt Count 285 (150-350) K/uL Neut % (Auto) 63.2 (45.0-80.0) % Lymph % (Auto) 24.9 (10.0-50.0) % [place] % (Auto) 8.2 (2.0-14.0) % Eos % (Auto) 2.7 (0.0-5.0) % Baso % (Auto) 1.0 (0.0-2.0) % Neut # (Auto) 3.30 (1.40-7.00) K/uL Lymph # (Auto) 1.30 (0.50-3.50) K/uL [place] # (Auto) 0.43 (0.00-1.00) K/uL Eos # (Auto) 0.14 (0.00-0.50) K/uL Baso # (Auto) 0.05 (0.00-0.20) K/uL Sodium 139 (136-145) mmol/L Potassium 3.9 (3.5-5.1) mmol/L Chloride 106 (98-107) mmol/L Carbon Dioxide 23.0 (21.0-32.0) mmol/L BUN 6 L (7-18) mg/dL Creatinine 0.61 (0.51-1.17) mg/dL Est Cr Clr Drug Dosing 134.71 mL/min Estimated GFR (MDRD) > 60 mL/min Glucose 96 (74-106) mg/dL Calcium 8.6 (8.5-10.1) mg/dL Total Bilirubin 8.3 H (0.2-1.0) mg/dL AST 305 H (15-37) U/L ALT 143 H (12-78) U/L Alkaline Phosphatase 544 H (46-116) IU/L Total Protein 5.4 L (6.4-8.2) g/dL Albumin 2.0 L (3.4-5.0) g/dL Med Orders - Current: Current Medications Discontinued Medications Acetaminophen (Tylenol) 650 mg PO Q3H PRN PRN Reason: Pain Last Admin: 02/15/19 00:38 Dose: 650 mg Diphenhydramine HCl (Benadryl) 50 mg PO ONETIME ONE Stop: 02/16/19 02:18 Last Admin: 02/16/19 02:32 Dose: 50 mg Potassium Chloride/Sodium Chloride (Normal Saline With 20 Meq Kcl) 1,000 mls @ 75 mls/hr IV ASDIRECTED [facility] Last Admin: 02/16/19 09:06 Dose: 150 mls/hr Sodium Chloride (Normal Saline) 1,000 mls @ 125 mls/hr IV ASDIRECTED [facility] Last Admin: 02/17/19 07:15 Dose: 125 mls/hr Lorazepam (Ativan) 1 mg PO Q4H PRN PRN Reason: Withdrawal Symptoms Last Admin: 02/17/19 08:14 Dose: 1 mg Lorazepam (Ativan) 2 mg IVPUSH Q1H PRN PRN Reason: Withdrawal Symptoms Last Admin: 02/16/19 04:09 Dose: 2 mg Miscellaneous Information (Remove Patch) 1 ea TRDERM DAILY [facility] Last Admin: 02/17/19 08:13 Dose: 1 ea Nicotine (Habitrol) 21 mg TRDERM DAILY [facility] Last Admin: 02/17/19 08:13 Dose: 21 mg Phenyleph/Shark Oil/Min Oil/Petrol (Preparation H Oint) 1 gm RECTAL ASDIRECTED PRN PRN Reason: Hemorrhoids Last Admin: 02/15/19 01:03 Dose: 1 gm Potassium Chloride (Klor-Con M20) 20 meq PO BID [facility] Last Admin: 02/16/19 08:08 Dose: 20 meq Potassium Chloride (Klor-Con M20) 20 meq PO DAILY [facility] Last Admin: 02/17/19 08:13 Dose: 20 meq Sodium Chloride (Saline Flush) 10 ml FLUSH ASDIRECTED PRN PRN Reason: Keep Vein Open Last Admin: 02/17/19 08:14 Dose: 10 ml Temazepam (Restoril) 15 mg PO BEDTIME PRN PRN Reason: Insomnia Last Admin: 02/16/19 22:54 Dose: 15 mg Thiamine HCl (Vitamin B-1) 100 mg IV DAILY [facility] Last Admin: 02/17/19 08:13 Dose: 100 mg - Exam General: Alert, Cooperative, No Acute Distress HEENT: Pupils Equal, Pupils Reactive, EOMI, Mucous Membr. Moist/[place], Scleral Icterus Neck: Trachea Midline, No JVD Lungs: Clear to Auscultation, Normal Respiratory Effort Cardiovascular: Regular Rate, Regular Rhythm GI/Abdominal Exam: Normal Bowel Sounds, Soft, No Distention (Female) Exam: Deferred Back Exam: Normal Inspection Extremities: Normal Inspection, Non-Tender, No Pedal Edema Skin: Warm, Dry, Intact Neurological: No New Focal Deficit Psy/Mental Status: Alert, Normal Affect, Normal Mood - Problem List & Annotations (1) Hepatitis, alcoholic, acute SNOMED Code(s): 4255673 Code(s): K70.10 - ALCOHOLIC HEPATITIS WITHOUT ASCITES Status: Acute Priority: High (2) Hypokalemia SNOMED Code(s): 42186902 Code(s): E87.6 - HYPOKALEMIA Status: Acute Priority: High (3) Alcohol abuse SNOMED Code(s): 62808874 Code(s): F10.10 - ALCOHOL ABUSE, UNCOMPLICATED Status: Acute (4) Dehydration SNOMED Code(s): 63145762 Code(s): E86.0 - DEHYDRATION Status: Acute Priority: Medium (5) Malnutrition SNOMED Code(s): 24621445 Code(s): E46 - UNSPECIFIED PROTEIN-CALORIE MALNUTRITION Status: Acute Priority: Medium Qualifiers: Malnutrition type: protein-calorie malnutrition Protein-calorie malnutrition severity: mild Qualified Code(s): E44.1 - Mild protein-calorie malnutrition (6) Anxiety SNOMED Code(s): 22662902 Code(s): F41.9 - ANXIETY DISORDER, UNSPECIFIED Status: Acute Priority: High (7) Tobacco dependency SNOMED Code(s): 10877326 Code(s): F17.200 - NICOTINE DEPENDENCE, UNSPECIFIED, UNCOMPLICATED Status: Acute Priority: Medium - Problem List Review Problem List Initiated/Reviewed/Updated: Yes - My Orders Last 24 Hours: My Active Orders 02/17/19 12:11 Discontinue Saline Lock [Peripheral IV Discontinue] [OM.PC] Routine 02/17/19 12:20 Discontinue Telemetry Monitoring [Cardiac Monitoring Discontinue] [RC] Click to Edit 02/17/19 12:21 Ready for Discharge [RC] PER UNIT ROUTINE - Plan Plan:: 02-14-19 Remy Burgos PA-C 28 yr-old female with a long history of daily alcohol consumption had presented for evaluation initially at [facility] due to concern for acute jaundice. Her eyes and skin have a significant yellow cast. She was weak and had no appetite, and had lost 26# by our clinic scale unintentionally over the past couple months. She did admit to lack of appetite. She did have some epigastic pain on palpation but no acute generalized tenderness and no organomegaly to palpation. Liver function test were all acutely elevated and she was spilling urobilinogen. K+ mildly elevated. Ultrasound found no cirrhosis but steatosis. She was dehydrated and considered to have at least mild malnutrition status. An IV of NS with KCl is started and telemetry placed. Regular diet ordered, and I will order a dietary consult. Labs sent over from initial visit at [facility] and will be repeated today. Long discussion was held in the clinic of the very acute nature of her liver disease and the extreme risk she is placing herself at if she continues drinking alcohol. I have been in contact with Alta Lee of [facility] [place], and she is hoping she will be able to confirm a bed availability for residential treatment for alcohol abuse. Her 16 month-old daughter has been living with her parents and will continue to do so. Dr. Cedeno was consulted at the time the decision was made to admit. 02-15-19 Remy Burgos PA-C Patient is sitting up in the bed today, she has not eaten any of her lunch but says she will. Says she is trying to increase fluid and nutritional intake. Denies chest or abdominal pain. Denies SOB. Is using the prn Lorazepam. Tells me today that she has now chosen [facility] in [place], [place] as the facility she wants to be admitted to for alcohol treatment. She has made contact herself with this facility per telephone and does have a fax number that we can use to send information to. I reviewed today's labs with patient, and told her I believe that I do not feel she will be discharged to home tomorrow but probably Sunday. 02-16-19 Remy Burgos PA-C Patient's affect is a little brighter today. Less scleral icterus. I am concerned for the increased T. Bill. and elevated Ferritin level. AST has trended back down somewhat, but ALT and Alk. Phos. essentially unchanged. K+ now well WNL so the IV fluid is changed to NS without the KCl and the po KCl is changed to only daily. Pt. tells me she drinks because of her anxiety and asks about an anti-anxiety pill. Says she was previously be on Wellbutrin, however I explained to her to risk for seizures if she should relapse and drink again as the Wellbutrin would lower the seizure threshold so this would not be a good choice for her, and she says it did not help anyway. I explained that any of the medicines that act on the central nervous system can dramatically exacerbate the effect of alcohol and would carry risk. She has used less of the prn Lorazepam today. We discussed the two AA meeting places here in [place] and says she has been to the one at the [facility] and felt that she was gossiped about after attending and wouldn't feel comfortable going again. I did strongly recommend she attend at least one meet at the [facility], the meetings are on Sunday nights at I believe 7pm but I did give her the phone number of the [facility] so she can call and verify that time. She tells me again she wants to go the [facility] in [place], [place] and is working on transferring her Medicaid over to [place]. She will be going home with friends when she is discharged, and reassures me that these friends will help keep her sober. I did let her know that Dr. Cedeno will be seeing her here in the hospital tomorrow. I also wished her success in her sobriety. 02/17/19 Pao Paul MD She feels better. We discussed frankly the damage to her liver, blood cells from alcohol and she must NOT take even one more sip of alcohol in her life. She states she understands and she does feel ready to abstain completely. We did discuss referral to gastroenterology which she agrees. Discussed her anxiety and treatments. Discussed smoking cessation. Discussed options for alcohol treatment. Also did discuss medications to help deter her craving of alcohol. Spent approximately 45 minutes. Also discussed her low protein and hypokalemia.
--- NOTE | 2019-02-18 00:13 | PCM.DCSUM1 ---
Discharge Summary - Hospital Course Diagnosis: Stroke: No - Discharge Data Discharge Date: 02/17/19 Discharge Disposition: Home, Self-Care 01 Condition: Fair - Referral to Home Health Primary Care Physician: CHRISTOPHE Alford - Discharge Diagnosis/Problem(s) (1) Hepatitis, alcoholic, acute SNOMED Code(s): 1577700 ICD Code: K70.10 - ALCOHOLIC HEPATITIS WITHOUT ASCITES Status: Acute Priority: High (2) Hypokalemia SNOMED Code(s): 65038818 ICD Code: E87.6 - HYPOKALEMIA Status: Acute Priority: High (3) Alcohol abuse SNOMED Code(s): 97776989 ICD Code: F10.10 - ALCOHOL ABUSE, UNCOMPLICATED Status: Acute (4) Dehydration SNOMED Code(s): 35475493 ICD Code: E86.0 - DEHYDRATION Status: Acute Priority: Medium (5) Malnutrition SNOMED Code(s): 91718604 ICD Code: E46 - UNSPECIFIED PROTEIN-CALORIE MALNUTRITION Status: Acute Priority: Medium Qualifiers: Malnutrition type: protein-calorie malnutrition Protein-calorie malnutrition severity: mild Qualified Code(s): E44.1 - Mild protein-calorie malnutrition (6) Anxiety SNOMED Code(s): 30083339 ICD Code: F41.9 - ANXIETY DISORDER, UNSPECIFIED Status: Acute Priority: High (7) Tobacco dependency SNOMED Code(s): 20777221 ICD Code: F17.200 - NICOTINE DEPENDENCE, UNSPECIFIED, UNCOMPLICATED Status : Acute Priority: Medium (8) Acute hemorrhoid SNOMED Code(s): 83781720, 93255475 ICD Code: K64.9 - UNSPECIFIED HEMORRHOIDS Status: Acute Priority: Medium (9) Uses control SNOMED Code(s): 043993981, 837681724 ICD Code: Z78.9 - OTHER SPECIFIED HEALTH STATUS Status: Acute Priority: Medium - Patient Summary/Data Consults: Consultations 02/14/19 13:23 Consult to Dietary [Consult to Enamel Sprayer] [CONS] Routine - Patient Instructions Diet: Regular Diet as Tolerated Activity: As Tolerated Driving: May Drive Today Showering/Bathing: May Shower Other/Special Instructions: We will check on your PCP. We will schedule you an appointment with a specialist (freight service inspector) in [place]. We will call you with the information. Continue making the arrangements for follow up with [facility]. Call [facility] and ask for Mami with any questions. - Discharge Plan *PRESCRIPTION DRUG MONITORING PROGRAM REVIEWED*: Not Applicable *COPY OF PRESCRIPTION DRUG MONITORING REPORT IN PATIENT SHELBY: Not Applicable Prescriptions/Med Rec: LORazepam [Ativan] 1 mg PO Q4H PRN #10 tablet PRN Reason: Anxiety Nicotine [Nicotine Patch] 21 mg TD DAILY #14 patch Thiamine [Vitamin B-1] 100 mg PO DAILY #100 tablet traZODone HCl [Trazodone HCl] 50 mg PO BEDTIME #30 tablet Venlafaxine [Effexor XR] 75 mg PO DAILY #90 cap.er Home Medications: Home Meds FLUoxetine HCl [Fluoxetine HCl] 1 tab PO DAILY 07/06/13 [History] medroxyPROGESTERone Acetate [Depo-Subq Provera 104] 104 mg SQ 02/14/19 [History] LORazepam [Ativan] 1 mg PO Q4H PRN #10 tablet 02/17/19 [Rx] MO/Pet,Wh/Phenylephrine/Shk Lv [Preparation H Oint] 1 gm RECTAL ASDIRECTED PRN tube 02/17/19 [Rx] Nicotine [Nicotine Patch] 21 mg TD DAILY #14 patch 02/17/19 [Rx] Thiamine [Vitamin B-1] 100 mg PO DAILY #100 tablet 02/17/19 [Rx] Venlafaxine [Effexor XR] 75 mg PO DAILY #90 cap.er 02/17/19 [Rx] traZODone HCl [Trazodone HCl] 50 mg PO BEDTIME #30 tablet 02/17/19 [Rx] Oxygen Therapy Mode: Room Air Patient Handouts: Alcohol Use Disorder - Discharge Summary/Plan Comment DC Time >30 min.: No - Patient Data Vitals - Most Recent: Last Vital Signs Temp 99 F 02/17/19 11:05 Pulse 85 02/17/19 11:05 Resp 20 02/17/19 11:05 BP 118/76 02/17/19 11:05 Pulse Ox 96 02/17/19 11:05 Weight - Most Recent: 135 lb 3.2 oz I&O - Last 24 hours: Intake & Output 02/17/19 02/17/19 02/18/19 14:59 22:59 06:59 Intake Total 500 Output Total 1200 Balance -700 Lab Results - Last 24 hrs: Laboratory Results - last 24 hr 02/17/19 02/17/19 Range/Units 07:05 07:05 WBC 5.2 (4.0-10.2) K/uL RBC 2.93 L (3.77-5.09) M/uL Hgb 9.9 L (11.7-15.5) g/dL Hct 30.8 L (34.0-46.0) % MCV 105.1 H (84.0-98.0) fL MCH 33.8 H (28.2-33.3) pg MCHC 32.1 (31.7-36.0) g/dL RDW 18.7 H (11.2-14.1) % Plt Count 285 (150-350) K/uL Neut % (Auto) 63.2 (45.0-80.0) % Lymph % (Auto) 24.9 (10.0-50.0) % [place] % (Auto) 8.2 (2.0-14.0) % Eos % (Auto) 2.7 (0.0-5.0) % Baso % (Auto) 1.0 (0.0-2.0) % Neut # (Auto) 3.30 (1.40-7.00) K/uL Lymph # (Auto) 1.30 (0.50-3.50) K/uL [place] # (Auto) 0.43 (0.00-1.00) K/uL Eos # (Auto) 0.14 (0.00-0.50) K/uL Baso # (Auto) 0.05 (0.00-0.20) K/uL Sodium 139 (136-145) mmol/L Potassium 3.9 (3.5-5.1) mmol/L Chloride 106 (98-107) mmol/L Carbon Dioxide 23.0 (21.0-32.0) mmol/L BUN 6 L (7-18) mg/dL Creatinine 0.61 (0.51-1.17) mg/dL Est Cr Clr Drug Dosing 134.71 mL/min Estimated GFR (MDRD) > 60 mL/min Glucose 96 (74-106) mg/dL Calcium 8.6 (8.5-10.1) mg/dL Total Bilirubin 8.3 H (0.2-1.0) mg/dL AST 305 H (15-37) U/L ALT 143 H (12-78) U/L Alkaline Phosphatase 544 H (46-116) IU/L Total Protein 5.4 L (6.4-8.2) g/dL Albumin 2.0 L (3.4-5.0) g/dL Med Orders - Current: Current Medications Discontinued Medications Acetaminophen (Tylenol) 650 mg PO Q3H PRN PRN Reason: Pain Last Admin: 02/15/19 00:38 Dose: 650 mg Diphenhydramine HCl (Benadryl) 50 mg PO ONETIME ONE Stop: 02/16/19 02:18 Last Admin: 02/16/19 02:32 Dose: 50 mg Potassium Chloride/Sodium Chloride (Normal Saline With 20 Meq Kcl) 1,000 mls @ 75 mls/hr IV ASDIRECTED ANGI Last Admin: 02/16/19 09:06 Dose: 150 mls/hr Sodium Chloride (Normal Saline) 1,000 mls @ 125 mls/hr IV ASDIRECTED ANGI Last Admin: 02/17/19 07:15 Dose: 125 mls/hr Lorazepam (Ativan) 1 mg PO Q4H PRN PRN Reason: Withdrawal Symptoms Last Admin: 02/17/19 08:14 Dose: 1 mg Lorazepam (Ativan) 2 mg IVPUSH Q1H PRN PRN Reason: Withdrawal Symptoms Last Admin: 02/16/19 04:09 Dose: 2 mg Miscellaneous Information (Remove Patch) 1 ea TRDERM DAILY [facility] Last Admin: 02/17/19 08:13 Dose: 1 ea Nicotine (Habitrol) 21 mg TRDERM DAILY [facility] Last Admin: 02/17/19 08:13 Dose: 21 mg Phenyleph/Shark Oil/Min Oil/Petrol (Preparation H Oint) 1 gm RECTAL ASDIRECTED PRN PRN Reason: Hemorrhoids Last Admin: 02/15/19 01:03 Dose: 1 gm Potassium Chloride (Klor-Con M20) 20 meq PO BID [facility] Last Admin: 02/16/19 08:08 Dose: 20 meq Potassium Chloride (Klor-Con M20) 20 meq PO DAILY [facility] Last Admin: 02/17/19 08:13 Dose: 20 meq Sodium Chloride (Saline Flush) 10 ml FLUSH ASDIRECTED PRN PRN Reason: Keep Vein Open Last Admin: 02/17/19 08:14 Dose: 10 ml Temazepam (Restoril) 15 mg PO BEDTIME PRN PRN Reason: Insomnia Last Admin: 02/16/19 22:54 Dose: 15 mg Thiamine HCl (Vitamin B-1) 100 mg IV DAILY [facility] Last Admin: 02/17/19 08:13 Dose: 100 mg
== END 2019-02-17 13:40 | disposition home or self-care (01) | DRG 433 ==
LOC: LL.MS 10:41
PROVIDERS: ADMIT Physician Assistant; ATTEND Family Medicine
DX: K70.10 Alcoholic hepatitis without ascites (principal); E44.1 Mild protein-calorie malnutrition; E87.6 Hypokalemia; F10.10 Alcohol abuse, uncomplicated; E86.0 Dehydration; F41.9 Anxiety disorder, unspecified; F17.200 Nicotine dependence, unspecified, uncomplicated; K76.0 Fatty (change of) liver, not elsewhere classified; K64.9 Unspecified hemorrhoids; Z79.899 Other long term (current) drug therapy; Z68.21 Body mass index [BMI] 21.0-21.9, adult
CPT/HCPCS: 36415; 80053; 80305-QW; 81001; 82607; 82728; 82746; 83540; 83550; 83735; 85025; 85610; 85730; A9270-GY; G0480; J2060; J3411; J3480; J7030

== ENCOUNTER 2019-11-13 01:43 | Emergency (ER) | payer MEDICAID ==
[2019-11-13 01:48] VITALS: BP 123/79; PULSE 96
[2019-11-13] MEDS ORDERED: Lactated Ringers 1,000 ML IV ONE (02:10)
[2019-11-13] MEDS ORDERED: Pantoprazole 40 MG Vial IVPUSH ONE (02:10)
[2019-11-13] MEDS ORDERED: Famotidine 20 MG/2 ML SDV IVPUSH ONE (02:10)
[2019-11-13] MEDS ORDERED: Sodium Chloride 0.9% 10 ML Syringe FLUSH PRN (02:10)
--- NOTE | 2019-11-13 02:10 | EDM.PDOC ---
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 Peripheral IV Care [RC] . DIRECTED 11/13/19 Breakfast Nothing Per Oral Diet [DIET] - Assessment/Plan Last 24 Hours: My Active Orders 11/13/19 02:10 Abdomen Series w Chest 1V [CR] Stat Sodium Chloride 0.9% [Saline Flush] 10 ml FLUSH ASDIRECTED PRN Obtain Past Medical Record [OM.PC] Urgent Peripheral IV Insertion Adult [OM.PC] Stat Resuscitation Status Stat 11/13/19 02:11 Peripheral IV Care [RC] . DIRECTED 11/13/19 Breakfast Nothing Per Oral Diet [DIET] Assessment:: As above Plan: As above. Extensive precautions were given to the patient, who is in agreement with the treatment plan. See Patient Instructions for further treatment and plan.
[2019-11-13 02:52] LABS: CHLORIDE,CL 102 mmol/L (98-107); SODIUM,NA 138 mmol/L (136-145)
[2019-11-13 02:53] LABS: PTT,PARTIAL THROMBOPLSTIN TIME 46.1 SEC (24.5-32.8)
[2019-11-13] MEDS ORDERED: Potassium Chloride 20 MEQ Tab.ER PO ONE (02:55)
[2019-11-13] MEDS ORDERED: Potassium Chloride 20 MEQ Tab.ER ONE (03:03)
[2019-11-13] MEDS ORDERED: Bisacodyl 5 MG Tab PO ONE (03:38)
== END 2019-11-13 04:00 | disposition home or self-care (01) ==
LOC: LL.ED 01:43
DX: K21.9 Gastro-esophageal reflux disease without esophagitis (principal); F10.129 Alcohol abuse with intoxication, unspecified; Y90.8 Blood alcohol level of 240 mg/100 ml or more; E87.6 Hypokalemia; K75.9 Inflammatory liver disease, unspecified; Z71.6 Tobacco abuse counseling; F41.9 Anxiety disorder, unspecified; D69.6 Thrombocytopenia, unspecified; E88.09 Other disorders of plasma-protein metabolism, not elsewhere classified; F17.210 Nicotine dependence, cigarettes, uncomplicated
CPT/HCPCS: 36415; 74022; 80053; 80307; 82140; 82150; 83605; 83690; 83735; 84550; 84703; 85025; 85610; 85730; 96374; 96375; 99284-25; A9270-GY; C9113; J3490; J7120